=== PATIENT | male | born 1985 | race Two or more races ===

== ENCOUNTER 2024-03-23 18:37 | Emergency (ER) | payer OTHER ==
[~2024-03-23] VITALS: Ht 188 cm; Wt 158.8 kg
[2024-03-23] MEDS ORDERED: ONDANSETRON HCL 2 MG/ML VIAL IV ONE (19:30)
[2024-03-23] MEDS ORDERED: 0.9 % SODIUM CHLORIDE 1,000 ML IV SCH (19:30)
[2024-03-23] MEDS ORDERED: ACETAMINOPHEN 500 MG GEL..CAP PO ONE ×2 (19:30→20:28)
[2024-03-23] MEDS ORDERED: ONDANSETRON HCL 2 MG/ML VIAL ONE (20:28)
[2024-03-23 21:09] LABS: HEMATOCRIT 45.2 % (39.0-48.0); HEMOGLOBIN 15.1 g/dL (13-16.00); MEAN CELL VOLUME 78.2 fL (80.0-100.00); MEAN CORPUSCULAR HEMOGLOBIN 26.1 pg (27.00-32.0); MEAN CORPUSCULAR HGB CONC 33.3 g/dl (32.0-36.0); RED BLOOD COUNT 5.78 M/uL (4.00-6.00); RED CELL DISTRIBUTION WIDTH 14.9 % (11.5-14.5)
[2024-03-23 21:11] LABS: PLATELET COUNT 111 K/uL (150-450)
[2024-03-23 21:31] LABS: ALBUMIN 3.9 gm/dL (3.4-5.0); BILIRUBIN TOTAL 0.51 mg/dL (0.3-1.2); CALCIUM 9.1 mg/dL (8.5-10.1); CREATININE SERUM 1.69 mg/dL (0.70-1.30); GFR 45.64; GLOBULINA 4.1 G/DL (2.4-3.5); POTASSIUM 3.75 mEq/L (3.5-5.1)
[2024-03-23] MEDS ORDERED: DOLOGEN CAPLET1 EACH PO (22:05)
[2024-03-23] MEDS ORDERED: ONDANSETRON ODT8 MG PO (22:05)
[2024-03-23] MEDS ORDERED: TUSNEL LIQUID178 ML PO (22:05)
== END 2024-03-23 22:36 | disposition home or self-care (01) ==
LOC: ER 18:38
PROVIDERS: General Practice
DX: U07.1 COVID-19 (principal)